=== PATIENT | female | born 1960 | race Caucasian/White ===

== ENCOUNTER → 2018-07-07 15:20 | Outpatient (CLI) | payer OTHER, SELFPAY ==
--- NOTE | 2018-07-07 | DI.RAD.S_ITS ---
PROCEDURE: XR ABDOMEN MIN 2V INDICATIONS: ABDOMINAL PAIN TECHNIQUE: 2 views of the abdomen were acquired. COMPARISON: None. FINDINGS: Surgical changes and devices: Left hip arthroplasty. Bowel: No pneumoperitoneum. The bowel gas pattern is normal. Soft tissues: No masses; visualized solid organ contours appear normal in size. No suspicious abdominal calcifications. Bones: No suspicious bony abnormalities. IMPRESSION: No acute process. Dictated by: Go Luke M.D. on 07/07/2018 at 15:45 Approved by: Go Luke M.D. on 07/07/2018 at 15:45
[2018-07-07 15:54] LABS: Add Manual Diff / Slide Review NO; Basophils Percent Auto 0.8 % (0-2); Eosinophils Percent Auto 1.6 % (2-4); Hematocrit 45.1 % (36-46); Hemoglobin 15.8 g/dL (12.0-16.0); Lymphocytes Percent Auto 31.5 % (25-40); Mean Corpuscular Hemoglobin 33.2 PG (26-34); Mean Corpuscular Volume 94.9 fL (80-100); Monocytes Percent Auto 8.8 % (3-14); Neutrophils Absolute Auto 3300 /uL (3000-5900); Neutrophils Percent Auto 57.3 % (50-75); Platelet Count 212 X10^3/uL (150-400); Red Blood Cell Count 4.75 X10^6/uL (4.0-5.2); Red Cell Distribution Width 13.1 % (11.6-14.8); White Blood Cell Count 5.8 X10^3/uL (4.5-11.0)
[2018-07-07 16:09] LABS: Alanine Aminotransferase 23 IU/L (9-52); Alkaline Phosphatase 98 U/L (38-126); Aspartate Aminotransferase 36 IU/L (14-36); Bilirubin Total 0.9 mg/dL (0.2-1.3); Blood Urea Nitrogen 16 mg/dL (7-17); Calcium 9.9 mg/dL (8.4-10.2); Carbon Dioxide 30 mmol/L (22-32); Chloride 101 mmol/L (98-107); Estimated Glomerular Filt Rate > 60.0 mL/min (>60); Glucose 100 mg/dL (70-100); HEMOLYSIS 19 (0-50); Lipase 126 U/L (23-300); Sodium 142 mmol/L (137-145)
== END ==
PROVIDERS: Family Provider Internal Medicine; PCP Internal Medicine; Visit Provider Internal Medicine
DX: R10.9 Unspecified abdominal pain (principal)
CPT/HCPCS: 36415; 74019; 80048; 82247; 83690; 84075; 84450; 84460; 85025

== ENCOUNTER → 2020-05-18 10:12 | Outpatient (CLI) | payer OTHER, SELFPAY ==
--- NOTE | 2020-05-18 | DI.CT.S_ITS ---
PROCEDURE: CT HEAD/BRAIN WO CON INDICATIONS: Post-traumatic headache, unspecified, intractable TECHNIQUE: Noncontrast 4.5 mm thick angled axial sections acquired from the foramen magnum to the vertex, with coronal and sagittal reformats. For radiation dose reduction, the following was used: automated exposure control, adjustment of mA and/or kV according to patient size. COMPARISON: None. FINDINGS: Image quality: Excellent. CSF spaces: Basal cisterns are patent. No extra-axial fluid collections. Ventricles are normal in size and shape. Brain: No midline shift. No intracranial masses or hemorrhage. Lam-white matter interface is normal. Skull and face: Calvarium and visualized facial bones are intact, without suspicious lesions. Sinuses: Visualized sinuses and mastoids are clear. IMPRESSION: 1. No acute intracranial abnormalities. Dictated by: Sonam Mosquera M.D. on 05/18/2020 at 10:30 Approved by: Sonam Mosquera M.D. on 05/18/2020 at 10:34
== END ==
PROVIDERS: Family Provider Internal Medicine; PCP Internal Medicine; Referring Provider Internal Medicine; Visit Provider Internal Medicine
DX: G44.301 Post-traumatic headache, unspecified, intractable (principal)
CPT/HCPCS: 70450

== ENCOUNTER 2022-05-25 09:24 | Emergency (ER) | payer OTHER, SELFPAY ==
[2022-05-25] VITALS (15 sets, daily range): BP systolic 148–196; BP diastolic 83–103; PULSE 68–90; RESP 12–46; TEMP 36.7; O2SAT 97–100
--- NOTE | 2022-05-25 09:49 | DI.RAD.S_ITS ---
PROCEDURE: XR CHEST 1V INDICATIONS: chest pain TECHNIQUE: One view of the chest was acquired. COMPARISON: [facility], , CHEST FOR PICC PLACEMENT, 08/23/2013, 14:38. FINDINGS: Surgical changes and devices: None. Lungs and pleura: Lungs are clear. Question biapical emphysematous change. No pleural effusions or pneumothorax. Mediastinum: Mediastinal contours appear normal. Heart size is normal. Bones and chest wall: No suspicious bony lesions. Overlying soft tissues appear unremarkable. IMPRESSION: Question biapical emphysematous change. No evidence acute pulmonary process. Dictated by: Joe Sr M.D. on 05/25/2022 at 10:34 Approved by: Joe Sr M.D. on 05/25/2022 at 10:35
--- NOTE | 2022-05-25 09:58 | PC.NURSE ---
patient was doing the dishes on thursday and she developed a perception that the dish began to move on its own. She states that she feels the room shifting and spinning at times and then she also feels that she is spinning and dizzy. This causes her to become nauseated and then vomits. She has not vomited today but reports vomiting twice yesterday.
[2022-05-25 10:01] LABS: Add Manual Diff / Slide Review NO; Basophils Absolute Auto 0 /uL (0-100); Basophils Percent Auto 0.8 % (0-2); Eosinophils Absolute Auto 100 /uL (0-450); Eosinophils Percent Auto 1.4 % (2-4); Hematocrit 43.3 % (36-46); Hemoglobin 15.1 g/dL (12.0-16.0); Lymphocytes Absolute Auto 1800 /uL (1100-4500); Lymphocytes Percent Auto 27.7 % (25-40); Mean Corpuscular HGB Conc 34.9 % (30-36); Mean Corpuscular Hemoglobin 33.2 PG (26-34); Mean Corpuscular Volume 95.3 fL (80-100); Monocytes Absolute Auto 500 /uL (0-900); Monocytes Percent Auto 7.7 % (3-14); Neutrophils Absolute Auto 4000 /uL (1500-7000); Neutrophils Percent Auto 62.4 % (50-75); Platelet Count 239 X10^3/uL (150-400); Red Blood Cell Count 4.55 X10^6/uL (4.0-5.2); Red Cell Distribution Width 12.4 % (11.6-14.8); White Blood Cell Count 6.4 X10^3/uL (4.5-11.0)
[2022-05-25 10:08] LABS: COVID19 -Nasal RAPID Negative (Negative)
[2022-05-25 10:13] LABS: Alanine Aminotransferase 19 IU/L (<35); Albumin 4.7 g/dL (3.5-5.0); Albumin Globulin Ratio 1.6 (1.0-2.8); Alkaline Phosphatase 83 U/L (38-126); Aspartate Aminotransferase 27 IU/L (14-36); BUN Creatinine Ratio 26.4 (6-22); Bilirubin Total 1.1 mg/dL (0.2-1.3); Blood Urea Nitrogen 24 mg/dL (7-17); Calcium 9.5 mg/dL (8.4-10.2); Carbon Dioxide 25 mmol/L (22-32); Chloride 101 mmol/L (98-107); Creatine Kinase 62 U/L (30-135); Estimated Glomerular Filt Rate > 60 mL/min (>60); Globulin 2.9 g/dL (1.7-4.1); Glucose 91 mg/dL (70-100); HEMOLYSIS 16 (0-50); Lipase 65 U/L (23-300); Magnesium 1.9 mg/dL (1.6-2.3); Potassium 3.8 mmol/L (3.4-5.1); Sodium 139 mmol/L (137-145); Total Protein 7.6 g/dL (6.3-8.2)
--- NOTE | 2022-05-25 10:20 | ED.DIZZY ---
HPI - Dizziness General Chief Complaint: Dizziness Stated Complaint: VERTIGO, VOMITING Time Seen by Provider: 05/25/22 09:55 Source: patient Mode of arrival: Family Vehicle History of Present Illness HPI Narrative: Patient is a healthy 61-year-old female who presents with dizziness for the last 2 days. She said she was standing in her kitchen washing her pot when suddenly she saw the trees were moving. She went to lie down. She slept but then still did not feel better. The next day she was mildly better felt like she could go to work. She was looking at her computer looking down looking up family the dizziness got worse she felt nauseous and vomited. She denies any chest pain palpitations. Numbness tingling or weakness. Her symptoms pretty much continued. She now has found that if she remains still her symptoms are tolerable. However even if she lifts her head up off the pillow she gets dizzy. And it is significantly worse with any type of movement. She tried an [id number] allergy medication without any relief. She still feels mildly nauseous. Related Data Previous Rx's Medication Instructions Recorded meclizine 25 mg tablet 25 mg PO TID PRN dizziness #20 tabs 05/25/22 ondansetron 4 mg disintegrating 4 mg PO Q8H PRN nausea and 05/25/22 tablet vomiting #10 tabs Allergies Allergy/AdvReac Type Severity Reaction Status Date / Time No Known Drug Allergies Allergy Verified 05/25/22 09:49 Review of Systems Review of Systems Narrative: GENERAL: Denies chills, fatigue, malaise, fever, sweats, travel HEENT: Denies sinus pain, ear pain, sore throat, difficulty swallowing, neck pain RESPIRATORY: Denies dyspnea, cough, wheezing, hemoptysis, sputum. CARDIOVASCULAR: Denies chest pain, palpitations, orthopnea, edema GASTROINTESTINAL: Denies nausea, vomiting, abdominal pain, diarrhea, constipation, melena. : Denies dysuria, frequency, incontinence, hematuria, urinary retention, flank pain. MUSCULOSKELETAL: Denies weakness, joint pain, or bony pain SKIN: No rash, no erythema, no pruritus NEUROLOGIC: See HPI PSYCHIATRIC: No concerning psychosocial issues. 12 point review of systems is negative except for those stated above and HPI Patient History Social History Smoking Status: Current every day smoker Smoking Status: Current every day smoker tobacco type: cigarettes alcohol intake frequency: 0-2 drinks per day Substance Use Type: does not use Exam Initial Vital Signs Initial Vital Signs: Vital Signs Pulse Rate 86 05/25/22 09:43 Respiratory Rate 33 H 05/25/22 09:43 Blood Pressure 196/100 H 05/25/22 09:43 Pulse Oximetry 100 05/25/22 09:43 GENERAL: Well-appearing, well-nourished and in no acute distress. HEENT: Head atraumatic,EOMI, pupils reactive, mild nystagmus more on left eye looking left face symmetric, moist mucous membranes CARDIOVASCULAR: Regular rate and rhythm without murmurs, rubs or gallops. RESPIRATORY: Breath sounds equal bilaterally, no wheezes rales or rhonchi. ABDOMEN: Soft, nontender. Normoactive bowel sounds all 4 quadrants. No guarding or rebound. EXTREMITIES: Normal range of motion, no clubbing or edema. Neurovascularly intact NEUROLOGICAL: Alert and oriented x4.Normal gait and speech. Cranial nerves II through XII grossly intact. Good [id number], good [id number], strength equal bilaterally, no dysarthria or aphasia, sensation in tact to soft touch bilaterally, no visual changes, no facial droop SKIN: Warm, dry, no laceration, no petechiae, no rashes or lesions. Scores NIH Stroke Scale Level of Conciousness: Alert, keenly responsive Ask month/age: Answers both questions correctly. Open/close eyes, close hand: Performs both tasks correctly Best gaze horizontal: Normal Visual mullen: No visual loss Facial palsy: Normal symetrical movement Left arm drift: No drift for full 10 sec Right arm drift: No drift for full 10 sec Left leg drift: No drift for full 5 sec Right leg drift: No drift for full 5 sec Limb ataxia: Absent Sensory on face/arms/legs: Normal, no sensory loss Best language: No aphasia, normal Dysarthria: Normal Extinction or inattention: No abnormality Total NIH Stroke scale score: 0 Course Orders Ordered: ED Orders 05/25/22 09:40 COVID19 -Nasal RAPID/Pre-Proc Stat 05/25/22 09:44 EKG-12 Lead Routine 05/25/22 09:49 XR chest 1V Stat 05/25/22 09:50 Complete Blood Count AUTO DIFF Stat Comprehensive Metabolic Panel Stat Lipase Stat Magnesium Stat Troponin & CK Cardiac Panel Stat 05/25/22 10:29 CT head/brain wo con Stat Discontinued Medications Diazepam (Diazepam 10 Mg/2 Ml Syringe) 2 mg IV NOW ONE Stop: 05/25/22 12:03 Last Admin: 05/25/22 12:10 Dose: 2 mg Documented By: RICHARD Sodium Chloride (Normal Saline 0.9%) 1,000 mls @ 1,000 mls/hr IV BOLUS ONE Stop: 05/25/22 11:28 Last Infusion: 05/25/22 11:41 Dose: 0 mls/hr Documented By: Admin: 05/25/22 10:37 Dose: 1,000 mls/hr Documented By: MERCEDES Meclizine HCl (Meclizine Hcl 12.5 Mg Tablet) 25 mg PO NOW ONE Stop: 05/25/22 10:30 Last Admin: 05/25/22 10:37 Dose: 25 mg Documented By: MERCEDES Ondansetron HCl (Ondansetron 4 Mg/2 Ml Inj) 4 mg IV NOW ONE Stop: 05/25/22 10:30 Last Admin: 05/25/22 10:37 Dose: 4 mg Documented By: MERCEDES Vital Signs Vital signs: Vital Signs - 8 hr 05/25/22 09:47 05/25/22 09:43 05/25/22 09:43 Temperature 98.1 F Pulse Rate 90 86 Respiratory Rate 19 33 H Blood Pressure 196/100 H 196/100 H Pulse Oximetry 98 100 Oxygen Delivery Method Room Air 05/25/22 10:00 05/25/22 10:00 05/25/22 10:30 Temperature Pulse Rate 80 Respiratory Rate 46 H Blood Pressure 178/83 H 171/103 H Pulse Oximetry 99 Oxygen Delivery Method 05/25/22 10:30 05/25/22 11:00 05/25/22 11:30 Temperature Pulse Rate 76 68 74 Respiratory Rate 15 12 13 Blood Pressure Pulse Oximetry 99 99 99 Oxygen Delivery Method 05/25/22 11:51 05/25/22 11:52 05/25/22 11:52 Temperature Pulse Rate 78 70 Respiratory Rate 22 12 Blood Pressure 180/86 H Pulse Oximetry 97 99 Oxygen Delivery Method 05/25/22 12:00 05/25/22 12:00 05/25/22 12:30 Temperature Pulse Rate 76 Respiratory Rate 46 H Blood Pressure 148/98 H 155/89 H Pulse Oximetry 100 Oxygen Delivery Method 05/25/22 12:30 05/25/22 13:00 05/25/22 13:01 Temperature Pulse Rate 72 74 Respiratory Rate 32 H 29 H Blood Pressure 184/88 H Pulse Oximetry 100 99 Oxygen Delivery Method 05/25/22 13:01 05/25/22 13:37 05/25/22 13:31 Temperature Pulse Rate 74 87 89 Respiratory Rate 17 12 Blood Pressure 178/99 H Pulse Oximetry 100 100 100 Oxygen Delivery Method Room Air 05/25/22 13:33 05/25/22 13:33 Temperature Pulse Rate 79 Respiratory Rate 19 Blood Pressure 178/99 H Pulse Oximetry 99 Oxygen Delivery Method MDM - Dizziness Lab Data Result diagrams: 05/25/22 09:50 05/25/22 09:50 Labs: Lab Results 05/25/22 05/25/22 05/25/22 Range/Units 09:40 09:50 09:50 WBC 6.4 (4.5-11.0) X10^3/uL RBC 4.55 (4.0-5.2) X10^6/uL Hgb 15.1 (12.0-16.0) g/dL Hct 43.3 (36-46) % MCV 95.3 (80-100) fL MCH 33.2 (26-34) PG MCHC 34.9 (30-36) % RDW 12.4 (11.6-14.8) % Plt Count 239 (150-400) X10^3/uL Neut % (Auto) 62.4 (50-75) % Lymph % (Auto) 27.7 (25-40) % Dougherty % (Auto) 7.7 (3-14) % Eos % (Auto) 1.4 L (2-4) % Baso % (Auto) 0.8 (0-2) % Neut # (Auto) 4000 (5872-8223) /uL Lymph # (Auto) 1800 (9578-4208) /uL Dougherty # (Auto) 500 (0-900) /uL Eos # (Auto) 100 (0-450) /uL Baso # (Auto) 0 (0-100) /uL Sodium 139 (137-145) mmol/L Potassium 3.8 (3.4-5.1) mmol/L Chloride 101 (98-107) mmol/L Carbon Dioxide 25 (22-32) mmol/L BUN 24 H (7-17) mg/dL Creatinine 0.91 (0.52-1.04) mg/dL Estimated GFR > 60 (>60) mL/min BUN/Creatinine Ratio 26.4 H (6-22) Glucose 91 (70-100) mg/dL Calcium 9.5 (8.4-10.2) mg/dL Magnesium 1.9 (1.6-2.3) mg/dL Total Bilirubin 1.1 (0.2-1.3) mg/dL AST 27 (14-36) IU/L ALT 19 (<35) IU/L Alkaline Phosphatase 83 (38-126) U/L Total Creatine Kinase 62 (30-135) U/L CK-MB (CK-2) TNP CK-MB (CK-2) Rel Index TNP Troponin I < 0.012 (0.01-0.034) ng/mL Total Protein 7.6 (6.3-8.2) g/dL Albumin 4.7 (3.5-5.0) g/dL Globulin 2.9 (1.7-4.1) g/dL Albumin/Globulin Ratio 1.6 (1.0-2.8) Lipase 65 (23-300) U/L SARS-CoV-2 (PCR) Negative (Negative) Imaging Data CT scan - head: Radiologist's Impression: [address] [address] [address] Scan Report Signed Patient: Feliz Kelly MR#: [id number] : 1960 Acct:[id number] Age/Sex: 61 / F Date of Service: 05/25/22 Loc: ED Accession Number: [id number] ?? Procedure: CT head/brain wo con Ordering Provider: Madeline Prado D.O. PROCEDURE:? CT HEAD/BRAIN WO CON ? INDICATIONS:? dizzy x 36 hours ? TECHNIQUE:? Noncontrast 4.5 mm thick angled axial sections acquired from the foramen magnum to the vertex, with coronal and sagittal reformats.? For radiation dose reduction, the following was used:? automated exposure control, adjustment of mA and/or kV according to patient size.? ? COMPARISON:? [facility], CT, CT HEAD/BRAIN WO CON, 05/18/2020, 10:12. ? FINDINGS:? Image quality:? Excellent.? ? CSF spaces:? Basal cisterns are patent.? No extra-axial fluid collections.? Ventricles are normal in size and shape.? ? Brain:? No midline shift.? No intracranial masses or hemorrhage.? Lam-white matter interface is normal.? ? Skull and face:? Calvarium and visualized facial bones are intact, without suspicious lesions.? Incidental note is made of hyperostosis frontalis. This is not considered to be pathologic in a woman of this age. ? Sinuses:? Visualized sinuses and mastoids are clear.? ? ? IMPRESSION:? Unremarkable noncontrast head CT, without an imaging explanation for the presenting history. ? No significant change from the prior. ? ? Dictated by: Saman Arora M.D. on 05/25/2022 at 10:14 ? ? Approved by: Saman Arora M.D. on 05/25/2022 at 10:15 ? ECG Data Interpretation: Normal sinus rhythm rate 85 MN interval 142 QRS [address] changes MDM Narrative Medical decision making narrative: Patient presents with vertigo-like symptoms. She is given meclizine and normal saline. Head CT is negative. She attemptted to ambulate to the restroom she did have some difficulty but is overall feeling a bit better. She is given a dose of Valium. That seemed to help a little bit more but symptoms have not completely resolved. Overall she feels better and feels like she is able to go. At this times her symptoms are most consistent with vertigo. Discharge Plan Departure Patient Disposition: Home Clinical Impression: Benign paroxysmal positional vertigo Instructions: DI for Vertigo Activity Restrictions/Additional Instructions: *You have been diagnosed with vertigo *What to do: At this time he likely of vertigo. Blood work head CT are negative. Increase activity as tolerated. I would avoid driving. *Continue to take medications as directed --> SENT TO [facility] Meclizine 25-50 mg every 8 hours if needed for dizziness Zofran 4 mg every 8 hours if needed for nausea or vomiting *Follow up with your primary care provider in 2-3 days or call [phone] *Return to ER if you should have increasing dizziness numbness tingling weakness inability to walk persistent vomiting or any new, worsening or concerning symptoms Prescriptions: New meclizine 25 mg tablet 25 mg PO TID PRN (Reason: dizziness) Qty: 20 0RF ondansetron 4 mg tablet,disintegrating 4 mg PO Q8H PRN (Reason: nausea and vomiting) Qty: 10 0RF Referrals: Joana Mcconnell MD [Primary Care Provider] - Visit Report Forms: Patient Portal/API
[2022-05-25 10:24] LABS: Troponin I < 0.012 ng/mL (0.01-0.034)
--- NOTE | 2022-05-25 10:29 | DI.CT.S_ITS ---
PROCEDURE: CT HEAD/BRAIN WO CON INDICATIONS: dizzy x 36 hours TECHNIQUE: Noncontrast 4.5 mm thick angled axial sections acquired from the foramen magnum to the vertex, with coronal and sagittal reformats. For radiation dose reduction, the following was used: automated exposure control, adjustment of mA and/or kV according to patient size. COMPARISON: [facility], CT, CT HEAD/BRAIN WO CON, 05/18/2020, 10:12. FINDINGS: Image quality: Excellent. CSF spaces: Basal cisterns are patent. No extra-axial fluid collections. Ventricles are normal in size and shape. Brain: No midline shift. No intracranial masses or hemorrhage. Lam-white matter interface is normal. Skull and face: Calvarium and visualized facial bones are intact, without suspicious lesions. Incidental note is made of hyperostosis frontalis. This is not considered to be pathologic in a woman of this age. Sinuses: Visualized sinuses and mastoids are clear. IMPRESSION: Unremarkable noncontrast head CT, without an imaging explanation for the presenting history. No significant change from the prior. Dictated by: Saman Arora M.D. on 05/25/2022 at 10:14 Approved by: Saman Arora M.D. on 05/25/2022 at 10:15
[2022-05-25] MEDS: MECLIZINE HCL 12.5 MG TABLET 25 MG PO (10:37)
[2022-05-25] MEDS: SODIUM CHLORIDE 0.9% 1,000 ML 1000 ML IV (10:37)
[2022-05-25] MEDS: ONDANSETRON 4 MG/2 ML INJ IV (10:37)
[2022-05-25] MEDS: diazePAM 10 MG/2 ML SYRINGE 2 MG IV (12:10)
== END 2022-05-25 13:38 | disposition home or self-care (01) ==
PROVIDERS: Emergency Provider Emergency Medicine; PCP Internal Medicine
DX: H81.10 Benign paroxysmal vertigo, unspecified ear (principal); Z20.822 Contact with and (suspected) exposure to COVID-19
CPT/HCPCS: 36415; 70450; 71045; 80053; 82550; 83690; 83735; 84484; 85025; 87635; 93005; 93010; 96361; 96374; 96375; 99284; C9803; J2405; J3360